=== PATIENT | male | born 1965 | race Caucasian/White ===

== ENCOUNTER 2017-05-04 19:56 | Emergency (ER) | payer BC ==
[~2017-05-04] VITALS: Ht 167.6 cm; Wt 111.0 kg
[2017-05-04] MEDS ORDERED: cholesterol PO (20:21)
[2017-05-04] MEDS ORDERED: METF500T4 PO (20:21)
[2017-05-04] MEDS ORDERED: INSLAN SQ (20:21)
[2017-05-04 20:27] LABS: GLUCOSE,POINT OF CARE 253 MG/DL (70-110)
[2017-05-04] MEDS ORDERED: CYCLOBENZAPRINE HCL 10 MG TABLET PO ONE (21:30)
[2017-05-04 22:10] VITALS: BP 145/77
== END 2017-05-04 22:14 | disposition home or self-care (01) ==
LOC: EMS 19:59
DX: M54.6 Pain in thoracic spine (principal); E11.9 Type 2 diabetes mellitus without complications; E78.00 Pure hypercholesterolemia, unspecified; Z79.4 Long term (current) use of insulin
CPT/HCPCS: 82962; 93005; 99283